=== PATIENT | female | born 1930 | race Caucasian/White ===

== ENCOUNTER 2018-06-28 11:47 | Emergency (ER) | payer MEDICAID ==
[~2018-06-28] VITALS: Ht 154.9 cm; Wt 56.7 kg
[2018-06-28 11:49] VITALS: Ht 154.9 cm; Wt 56.7 kg
[2018-06-28 15:46] VITALS: BP 173/56
== END 2018-06-28 15:46 | disposition home or self-care (01) ==
LOC: ED 11:47
DX: M54.12 Radiculopathy, cervical region (principal); R51 Headache
CPT/HCPCS: J2765